=== PATIENT | female | born 1985 | race Caucasian/White ===

== ENCOUNTER 2021-10-03 15:39 | Emergency (ER) | payer MEDICAID, SELFPAY ==
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
[2021-10-03 15:53] VITALS: BP 164/113; PULSE 110; RESP 18; TEMP 36.5; O2SAT 97
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
== END 2021-10-03 17:31 | disposition home or self-care (01) ==
PROVIDERS: Emergency Provider Emergency Medicine
DX: S09.90XA Unspecified injury of head, initial encounter (principal); S90.31XA Contusion of right foot, initial encounter; V87.7XXA Person injured in collision between other specified motor vehicles (traffic), initial encounter
CPT/HCPCS: 70450; 73630; 99282; 99284